=== PATIENT | male | born 1955 | race Caucasian/White ===

== ENCOUNTER 2017-02-15 11:48 | Emergency (ER) | payer MEDICARE ==
[~2017-02-15] VITALS: Ht 182.9 cm; Wt 158.8 kg
--- NOTE | 2017-02-15 14:29 | Diagnostic Imaging Report ---
PROCEDURE: A single AP view of the chest. COMPARISON: None. INDICATIONS: FALL FINDINGS: Lines/tubes: None. Lungs: The lungs are well inflated and clear. There is no evidence of pneumonia or pulmonary edema. Pleura: There is no pleural effusion or pneumothorax. Heart and mediastinum: The heart and the mediastinum are unremarkable. Bones: No acute bony abnormality within the limitations of frontal AP view. Partially visualized cervical fusion hardware. IMPRESSION: No acute cardiopulmonary disease. Dictated by: Wil Eason M.D. on 02/15/2017 at 14:37 Electronically approved by: Wil Eason M.D. on 02/15/2017 at 14:37
--- NOTE | 2017-02-15 14:30 | Diagnostic Imaging Report ---
PROCEDURE:X-RAY RIGHT KNEE, THREE OR MORE VIEWS COMPARISON:None. INDICATIONS:FALL RIGHT KNEE PAIN FINDINGS: The bones are well-mineralized. Mild patellofemoral compartment degenerative changes. There are no fractures, subluxations, lytic or blastic lesions. Trace suprapatellar joint effusion. CONCLUSION: No acute bony abnormalities. Dictated by: Wil Eason M.D. on 02/15/2017 at 14:39 Electronically approved by: Wil Eason M.D. on 02/15/2017 at 14:39
[2017-02-15 17:58] LABS: BASOPHILS % 0.5 % (0.0-1.0); EOSINOPHILS % 0.5 % (0.0-6.0); HEMATOCRIT 42.4 % (38.2-49.6); HEMOGLOBIN 13.9 g/dL (14.0-18.0); MEAN CORPUSCULAR HEMOGLOBIN 27.6 pg (28-32); MEAN CORPUSCULAR HGB CONC 32.8 g/dL (31-35); MEAN CORPUSCULAR VOLUME 84.3 fL (81-99); MONOCYTES # (AUTO) 1.4 (0.2-0.8); MONOCYTES % 21.2 % (4.4-11.3); PLATELET COUNT 187 x10e3/uL (140-360); RED BLOOD COUNT 5.03 x10e6/uL (4.3-5.7); RED CELL DISTRIBUTION WIDTH 15.4 % (11.7-14.4)
[2017-02-15 18:03] LABS: INR 0.88; PROTHROMBIN TIME 12.4 seconds (11.9-14.5)
[2017-02-15 18:04] LABS: PARTIAL THROMBOPLASTIN TIME 24.3 seconds (23.8-35.5)
[2017-02-15 18:11] LABS: ALANINE AMINOTRANSFERASE 19 IU/L (0-55); ALBUMIN 3.4 g/dL (3.5-5.0); ALBUMIN/GLOBULIN RATIO 1.1 (0.8-2.0); ALKALINE PHOSPHATASE 65 IU/L (40-150); ANION GAP 12.3 mmol/L (8-16); BLOOD UREA NITROGEN 8 mg/dL (7-26); BUN/CREATININE RATIO 11 (6-25); CALCIUM 8.6 mg/dL (8.4-10.2); CARBON DIOXIDE 29 mmol/L (22-29); CHLORIDE 99 mmol/L (98-107); CREATINE KINASE 340 IU/L (30-200); CREATININE, SERUM 0.75 mg/dL (0.72-1.25); EST GLOMERULAR FILTRATION RATE > 60 ML/MIN (60-); GLUCOSE 147 mg/dL (74-118); MAGNESIUM 1.9 MG/DL (1.3-2.1); POTASSIUM 4.3 mmol/L (3.5-5.1); SODIUM 136 mmol/L (136-145)
[2017-02-15 18:18] LABS: TROPONIN I 0.013 ng/mL (0-0.300)
[2017-02-15] MEDS ORDERED: ASPIRIN325 MG PO (19:19)
[2017-02-15] MEDS ORDERED: COLACE100 MG PO (19:19)
[2017-02-15] MEDS ORDERED: CYMBALTA30 MG PO (19:19)
[2017-02-15] MEDS ORDERED: PLAVIX75 MG PO (19:19)
[2017-02-15] MEDS ORDERED: MULTI-VITAMIN1 EACH PO (19:25)
[2017-02-15] MEDS ORDERED: METOPROLOL SUCC50 MG PO (19:25)
[2017-02-15] MEDS ORDERED: HUMULIN R100 UNIT/2 (19:25)
[2017-02-15] MEDS ORDERED: TRIAMCINOLONE A15 G2 (19:25)
[2017-02-15] MEDS ORDERED: MIRALAX17 GM PO (19:25)
[2017-02-15] MEDS ORDERED: ISOSORBIDE MONO20 MG PO (19:25)
[2017-02-15] MEDS ORDERED: LOSARTAN POTASS25 MG PO (19:25)
[2017-02-15] MEDS ORDERED: METFORMIN HCL500 MG PO (19:25)
[2017-02-15] MEDS ORDERED: SSD CREAM (19:25)
[2017-02-15] MEDS ORDERED: SIMVASTATIN20 MG PO (19:25)
[2017-02-15] MEDS ORDERED: HUMULIN 70100 UNIT/1 SQ (19:25)
[2017-02-15] MEDS ORDERED: [UNRECOGNIZED DRUG - OTHER] (19:25)
[2017-02-15] MEDS ORDERED: PANTOPRAZOLE SO40 MG PO (19:25)
[2017-02-15] MEDS ORDERED: HYDROCODONE/APAP 10MG-325MG TAB PO ONE (19:30)
[2017-02-15 21:51] VITALS: BP 123/62
== END 2017-02-15 22:50 | disposition home or self-care (01) ==
LOC: ER 11:48
DX: R05 Cough (principal); J09.X2 Influenza due to identified novel influenza A virus with other respiratory manifestations; M25.561 Pain in right knee; S80.01XA Contusion of right knee, initial encounter; S80.811A Abrasion, right lower leg, initial encounter; L03.115 Cellulitis of right lower limb; W19.XXXA Unspecified fall, initial encounter; Y92.89 Other specified places as the place of occurrence of the external cause; I10 Essential (primary) hypertension; I25.10 Atherosclerotic heart disease of native coronary artery without angina pectoris; E11.9 Type 2 diabetes mellitus without complications
CPT/HCPCS: 36415; 71010; 80053; 82550; 82553; 83735; 84484; 85025; 85610; 85730; 87400; 93005; 93971; 99284